=== PATIENT | female | born 1960 | race Caucasian/White ===

== ENCOUNTER 2016-11-16 12:31 | Emergency (ER) | payer SELFPAY ==
--- NOTE | 2016-11-16 12:52 | ER Document Report ---
ED Psych Disorder / Suicide <FRANCESCA BLACK - Last Filed: 11/16/16 13:02> - General Time seen by provider: 12:30 Mode of Arrival: Medic Information source: Emergency Med Personnel Cannot obtain history due to: Altered mental status TRAVEL OUTSIDE OF THE [place] IN LAST 30 DAYS: No - HPI Patient complains to provider of: Agitated Onset: Just prior to arrival - see HPI note Normal mood: No Similar symptoms previously: No Recently seen / treated by doctor: No <YOLANDA BRYSON - Last Filed: 11/16/16 13:18> - General Stated Complaint: ALTERED ALERTNESS/PSYCH EVAL Notes: Patient is a 55 year old female presenting to the emergency department for abnormal behavior. Patient was on an airplane that was just starting to leave the airport when she started "passing out." Patient was brought into the emergency department via EMS who states that the patient had normal vital signs , no complaint of pain, and normal telemetry 12 lead. Patient asked EMS to call her daughter Marley who explained to EMS that the patient has an extensive mental health history and has had this behavior before. Patient was here visiting her daughter who is and was supposed to have her baby yesterday. Patient's daughter did not have her baby yet and the patient was flying back to [place] where her lives. EMS also says the daughter stated that the patient's spouse is her and she has some increased stress. Patient's daughter state that she made the patient throw out her trazadone. Patient denies any hallucination during exam. Patient pretends to "pass out" in the bed and then asks if she is . EMS state the patient also had some large brown pills in a ziploc bag in her pocket; EMS took these from the patient who stated they were herbal vitamins. (YOLANDA BRYSON) Past Medical History - General Cannot obtain history due to: Altered mental status - Social History Smoking Status: Unknown if Ever Smoked Family History: None <YOLANDA BRYSON - Last Filed: 11/16/16 13:18> Review of Systems - Review of Systems Constitutional: No symptoms reported EENT: No symptoms reported Cardiovascular: No symptoms reported Respiratory: No symptoms reported Gastrointestinal: No symptoms reported Genitourinary: No symptoms reported Female Genitourinary: No symptoms reported Musculoskeletal: No symptoms reported Skin: No symptoms reported Hematologic/Lymphatic: No symptoms reported Neurological/Psychological: See HPI -: Yes All other systems reviewed and negative <YOLANDA BRYSON - Last Filed: 11/16/16 13:18> Physical Exam - Vital signs Interpretation: Normal <FRANCESCA BLACK - Last Filed: 11/16/16 13:02> <YOLANDA BRYSON - Last Filed: 11/16/16 13:18> - Notes Notes: GENERAL: VS as per nursing doc. Well-appearing, well-nourished and in no acute distress but hyperalert with periods of becoming limp and pretending to pass out , occasionally stating "am I yet". HEAD: Atraumatic, normocephalic. EYES: Pupils equal round and reactive to light, extraocular movements intact, sclera anicteric, no conjunctival injection or discharge. ENT: Nares patent, oropharynx clear without exudates. Moist mucous membranes. NECK: Normal range of motion, supple LUNGS: Breath sounds clear to auscultation bilaterally and equal. No wheezes rales or rhonchi. HEART: Normal S1S2. Regular rate and rhythm without murmurs. Equal peripheral pulses. ABDOMEN: Soft, non-tender. EXTREMITIES: Normal range of motion. No calf tenderness. No edema. NEUROLOGICAL: GCS 15, Cranial nerves II-XII intact. Normal gross visual field defect. Normal speech without aphasia. Normal motor and strength. No gross cerebellar. PSYCH: Intermittently agitated, Recent and distant memory intact. No tangential or circumferential thought processes noted. Somwhat manic acting. No evidence of active hallucinations, delusions, or paranoia. No report of suicidal or homicidal ideation. No evidence of intoxication. SKIN: Warm, Dry, no cyanosis, Cap refill < 2 sec. (FRANCESCA BLACK) Course - Laboratory Result Diagrams: 11/16/16 11:45 11/16/16 11:45 - EKG Interpretation by Ut EKG shows normal: Sinus rhythm Rate: Normal Rhythm: NSR [place]/QRS: No: Right axis deviation, Left axis deviation, RBBB, LBBB, IVCD, LAHB/ LAFB, LPHB/LPFB, Bifasicular block Voltage: No: Increased voltage, Consistant with LVH, Decreased voltage, Throughout, Limb leads P Waves: No: SHANIQUA, LAE, Absent, AV Dissociation, Other Heart block present: No: 1st Degree, Mobitz 1, Mobitz 2, CHB (3rd degree block) <FRANCESCA BLACK - Last Filed: 11/16/16 13:02> - Laboratory Result Diagrams: 11/16/16 11:45 11/16/16 11:45 <YOLANDA BRYSON - Last Filed: 11/16/16 13:18> Scribe Documentation - Scribe Written by Scribe:: Yolanda Bryson 11/16/16 13:10 acting as scribe for :: Gerry <YOLANDA BRYSON - Last Filed: 11/16/16 13:18>
[2016-11-16 13:01] LABS: ABSOLUTE EOSINOPHILS # (AUTO) 0.1 10^3/uL (0.0-0.6); ABSOLUTE LYMPHOCYTES (AUTO) 0.9 10^3/uL (0.5-4.7); ABSOLUTE MONOCYTES (AUTO) 0.7 10^3/uL (0.1-1.4); ABSOLUTE NEUT (AUTO) 4.6 10^3/uL (1.7-8.2); BASOPHILS % (AUTO) 0.5 % (0-2); EOSINOPHILS % (AUTO) 1.6 % (0-6); HEMATOCRIT 41.9 % (36.0-47.0); HEMOGLOBIN 13.7 g/dL (12.0-15.5); HGB HCT DIFFERENCE -0.8; LYMPHOCYTES % (AUTO) 14.1 % (13-45); MEAN CORPUSCULAR HEMOGLOBIN 29.4 pg (27.0-33.4); MEAN CORPUSCULAR HGB CONC 32.6 g/dL (32.0-36.0); MEAN CORPUSCULAR VOLUME 90 fl (80-97); MONOCYTES % (AUTO) 11.1 % (3-13); RED BLOOD COUNT 4.65 10^6/uL (3.72-5.28); RED CELL DISTRIBUTION WIDTH 13.6 % (11.5-14.0); SEGMENTED NEUTROPHILS % (AUTO) 72.7 % (42-78); WHITE BLOOD COUNT 6.3 10^3/uL (4.0-10.5)
[2016-11-16 13:15] LABS: ALANINE AMINOTRANSFERASE 77 U/L (9-52); ALBUMIN 4.3 g/dL (3.5-5.0); ALKALINE PHOSPHATASE 95 U/L (38-126); ANION GAP 11 (5-19); ASPARTATE AMINO TRANSFERASE 40 U/L (14-36); BILIRUBIN,DIRECT 0.2 mg/dL (0.0-0.4); BILIRUBIN,TOTAL 0.6 mg/dL (0.2-1.3); BLOOD UREA NITROGEN 23 mg/dL (7-20); CALCIUM 9.7 mg/dL (8.4-10.2); CARBON DIOXIDE 26 mmol/L (22-30); CHLORIDE 105 mmol/L (98-107); GLUCOSE 79 mg/dL (75-110); MAGNESIUM 1.8 mg/dL (1.6-2.3); POTASSIUM 4.3 mmol/L (3.6-5.0); SODIUM 142.2 mmol/L (137-145); TOTAL PROTEIN 7.6 g/dL (6.3-8.2)
[2016-11-16 13:16] LABS: ALCOHOL < 10 mg/dL (NONE DETECTED)
[2016-11-16] MEDS ORDERED: HALOPERIDOL LACTATE INJ 5 MG/1 ML VIAL IV ONE (13:30)
[2016-11-16] MEDS ORDERED: DIPHENHYDRAMINE HCL 50 MG/ML VIAL IV ONE (13:30)
[2016-11-16 13:52] LABS: APPEARANCE,URINE CLEAR; BILIRUBIN,URINE NEGATIVE (NEGATIVE); GLUCOSE, URINE NEGATIVE (NEGATIVE); KETONES,URINE NEGATIVE (NEGATIVE); LEUKOCYTE ESTERASE,URINE SMALL (NEGATIVE); NITRITE,URINE NEGATIVE (NEGATIVE); PROTEIN,URINE NEGATIVE (NEGATIVE); URINE SPECIFIC GRAVITY 1.011; UROBILINOGEN,URINE NEGATIVE mg/dL (<2.0)
[2016-11-16 14:14] LABS: URINE BARBITURATES SCREEN NEGATIVE; URINE METHADONE SCREEN NEGATIVE; URINE OPIATES LOW NEGATIVE; URINE PHENCYCLIDINE SCREEN NEGATIVE
--- NOTE | 2016-11-16 20:43 | EKG REPORT ---
SEVERITY:- NORMAL ECG - SINUS RHYTHM : Confirmed by: Redd See 16-Nov-2016 20:42:25
[2016-11-17 05:11] VITALS: BP 115/73
--- NOTE | 2016-11-17 06:07 | PSYCHOLOGICAL NOTE ---
Psych Note - Psych Note Psych Note: Patient is a 55 year old female presenting to the emergency department for abnormal behavior. Patient was on an airplane that was just starting to leave the airport when she started "passing out." Patient was brought into the emergency department via EMS who states that the patient had normal vital signs , no complaint of pain, and normal telemetry 12 lead. Patient asked EMS to call her daughter Marley who explained to EMS that the patient has an extensive mental health history and has had this behavior before. Patient was here visiting her daughter who is and was supposed to have her baby yesterday. Patient's daughter did not have her baby yet and the patient was flying back to [place] where her lives. EMS also says the daughter stated that the patient's spouse is her and she has some increased stress. Patient's daughter state that she made the patient throw out her trazadone. Patient denies any hallucination during exam. Patient pretends to "pass out" in the bed and then asks if she is . EMS state the patient also had some large brown pills in a ziploc bag in her pocket; EMS took these from the patient who stated they were herbal vitamins. Patient states that her daughter is having a baby and she is here visiting. She continued to disclose that her sister in 2013, her father in october , and her "baby brother" . When asked when her brother she started to "cry" and stated that she could not think about it because it upsets her. When the patient was asked if she knew why she was brought to [facility] ED stated "I don't know why, Am I ?" Patient was able to remember what occurred on the airplane, recounting that she was not feeling well and when the stewardess asked if she was alright, she told her no and then fainted landing on other passengers. She disclosed that she is from [place] and her is there watching a "golf club thing called the [employer]." she continued to discuss the Masters stating that her watches it ever year and she hates it. She states she does not know why it is on every year. Patient was able to provide her doctors name in [place], Dr. Noemí Sen, and that she gets her prescriptions form the [facility] on in [place], [place]. When asked what medications she takes, she disclosed that she takes Prozac "3 caps every 3 days." Clinician spoke with the patient's , Ziggy Varma [phone]. He disclosed concern the patient would be given medications while at [facility]. He stated that he supports it if it is needed to calm her but requests no Xanax be given. He stated the patient has a long history of being on the medications and has been working to get off them. He continued to disclose that she is supposed to be only on prozac but just found out that she was put back on trazadone. He disclosed that she has a history of misuse of her medications, "fake" suicide attempts, and overdoses. She has overdosed on trazadone in the past. He states that he thinks she is an "attention seeker." He disclosed that they are currently and her visit with her daughter was not going well so she was coming back early. SHe has a history of these episodes when she is under a lot of stress. He is concerned that she not only had trazadone again but that she may have been using nighttime cold medications in high amounts during this visit. Patient is alert and orientated to person and place. mood is dysphoric with labile affect. Patient denies suicidal and homicidal ideation. patient denies auditory and visual hallucinations; no delusions are noted. Thought process is circumstantial; organized but over inclusive. Moments of odd or extreme questions and behaviors noted, i.e. asking is she is and "fainting" episodes. Conversational speech was within normal rate tone and prosody. Eye contact was fair. Intellectual abilities appear to be within normal range. Attention and concentration are poor. Insight, judgment and impulse control are poor. 311 (F32.9) Unspecified Depression per history provided by patient. Impression/Plan: Patient is recommended for overnight mental health hold for observation. Patient is demonstrating behaviours that indicate this is behavioral, i.e. frequent graceful "fainting" episodes and being organized and linear in thought process then asking if she . it is reported by the patient 's spouse that she has a history of misuse of her medications but during times of high stress has these "episodes." It is reported the patient caused a flight to have to stop its take off and remove her from the plane. Patient will be re-evaluated. Dr. Guillen was consulted on the care and management of this patient; attending physician is in agreement with recommendations and disposition.
--- NOTE | 2016-11-17 09:31 | ER Document Report ---
Doctor's Note Notes: 11/17/16 09:31 Lab work vital signs have been reviewed. At this time patient is currently stable with no overnight events requiring no intervention at this time. Patient stable for transfer or other disposition
[2016-11-17] MEDS ORDERED: ACETAMINOPHEN 325 MG TABLET PO ONE (13:33)
--- NOTE | 2016-11-17 14:56 | PSYCHOLOGICAL NOTE ---
Psych Note - Psych Note Psych Note: Conducted check in with patient who is a 55 year old female under IVC at [facility] ED. Patient initially presented via EMS/[facility] after she was removed from an airplane prior to take off. Patient was held under an IVC due to her altered mental status. Patient today presents with a clear mental status, and states she was here visiting her [place], [place] and their 2 small children. She reports she was attempting to fly home yesterday, but "from all I remember" was feeling dizzy, needing assistance boarding the plane with her bag, and having multiple syncopal episodes on the plane. She states the airplane pilot supervisor or in flight refueling operator called EMS, and she was brought here. Patient states she is feeling better and has [facility] Patient states once she is discharged, her will provide her with a cab to a local hotel and then she will fly back to [place] tomorrow morning at 1145. Patient denies suicidal ideations. Patient's , Ziggy Varma : states he has spoken with the patient over the telephone and she has progressively sounded clearer and more sensical. states they are and that the patient was visiting her adult daughter whose family is stationed in [place] and was scheduled to fly home Friday. reports due to discord, he states likely due to her overuse of sleep aids/otc pills, the trip was cut short and she attempted to fly home yesterday. states their daughter is due to give to her 3rd child any day, and is past her due date. reports patient has a history of misusing prescription pills, otc medications, and now herbal supplements. He does not report concerns for her safety in regards suicidal ideations and or psychosis. Patient is A&O x4. Mood is anxious with normal affect. Patient denies suicidal/ homicidal ideations, intent, plan, or means. Patient denies A/V H; delusions not noted. Thought processes were guarded. Conversational speech was WNL for prosody. Intellectual abilities were estimated within average range. Attention and focus were fair. Insight, judgment, and impulse control were poor. 311 (F32.9) Unspecified Depression per history provided by patient. Unspecified Polysubstance Abuse Patient is psychiatrically cleared for discharge and recommended to follow up with her psychiatrist upon return to [place]. Patient's mental status has improved, to now A&O x4. Patient denies suicidal/homicidal ideations, intent, plan, or means. Patient's denies concerns related to suicidal ideations or harm to self. Per and patient, patient will discharge to a hotel and fly home tomorrow at her previously scheduled return flight. Additionally, patient is recommended for a substance abuse assessment. I consulted with Dr. Guillen in regards to the care and management of this patient. ED MD is in agreement with disposition and recommendations.
--- NOTE | 2016-11-17 15:02 | ER Document Report ---
ED Psych Disorder / Suicide - General Mode of Arrival: Medic Information source: Patient, Relative - TRAVEL OUTSIDE OF THE [place].S. IN LAST 30 DAYS: No - HPI Patient complains to provider of: Bizarre behavior Onset: Just prior to arrival Onset was: Sudden Suicide Risk Factors: Depressed, Substance abuse - R/O Situational problems related to: Daughter - Reported discord with daughter. Pt was visiting from [place]; however, visit was terminated early, Spouse - states they are , in part due to her overuse/abuse of medications/pills Overdose of: Other - Overuse of cold medicine, otc sleep medications, and herbal supplements Normal mood: Yes - At the time of reevaluation Associated symptoms: Normal affect, Normal mood, Anxious, Uncooperative - guarded with informaiton Similar symptoms previously: No Recently seen / treated by doctor: No <KRISSY LO - Last Filed: 11/17/16 14:56> <ANA CAREY - Last Filed: 11/17/16 15:07> - General Chief Complaint: Psych Problem Stated Complaint: ALTERED ALERTNESS/PSYCH EVAL - Related Data Allergies/Adverse Reactions: No Known Allergies Allergy (Unverified 11/17/16 13:31) Past Medical History - General Information source: Patient, Emergency Med Personnel - Social History Smoking Status: Former Smoker Chew tobacco use (# tins/day): No Frequency of alcohol use: Rare Drug Abuse: None, Other Family History: None Psychiatric Medical History: Reports: Hx Bipolar Disorder - Immunizations Hx Diphtheria, Pertussis, Tetanus Vaccination: Yes <KRISSY LO - Last Filed: 11/17/16 14:56> Course - Laboratory Result Diagrams: 11/16/16 11:45 11/16/16 11:45 <KRISSY LO - Last Filed: 11/17/16 14:56> - Laboratory Result Diagrams: 11/16/16 11:45 11/16/16 11:45 <ANA CAREY - Last Filed: 11/17/16 15:07> - Re-evaluation Re-evalutation: 11/17/16 15:05 Patient seen and evaluated by psychiatric team. At this time agreeable with statements. Patient agrees to plan will be discharged home patient states that she is ready for better food. (ANA CAREY) - Vital Signs Vital signs: Temp Pulse Resp BP Pulse Ox 97.7 F 77 17 115/73 99 11/17/16 05:11 11/17/16 05:11 11/17/16 05:11 11/17/16 05:11 11/17/16 05:11 - Laboratory Laboratory results interpreted by me: 11/16/16 11/16/16 11:45 13:10 BUN 23 H AST 40 H ALT 77 H Urine Blood SMALL H Ur Leukocyte Esterase SMALL H Salicylates < 1.0 L Acetaminophen < 10 L Discharge <KRISSY LO - Last Filed: 11/17/16 14:56> <ANA CAREY - Last Filed: 11/17/16 15:07> - Discharge Clinical Impression: altered mental status improved Depression Qualifiers: Depression Type: unspecified Qualified Code(s): F32.9 - Major depressive disorder, single episode, unspecified Condition: Good Disposition: HOME, SELF-CARE Instructions: Altered Mental Status ([facility]), Depression ([facility]), Drug Effects ([facility]) Additional Instructions: Please follow up with your psychiatric provider upon return to your home in [place]. Please engage in substance abuse assessment to determine potential need for substance abuse treatment. Please return to the ER if your symptoms worsen.
== END 2016-11-17 16:54 | disposition home or self-care (01) ==
LOC: ER 12:31
DX: F91.9 Conduct disorder, unspecified (principal); R41.82 Altered mental status, unspecified
CPT/HCPCS: 93005; 99285; 96374; 96375; 36415; 80307 ×4; 83735; 85025; 80053; 81001; 93010; J1200; J1630